=== PATIENT | female | born 1960 | race Caucasian/White ===

== ENCOUNTER 2018-08-21 17:39 | Emergency (ER) | payer OTHER ==
[~2018-08-21] VITALS: Ht 170.2 cm; Wt 99.8 kg
[~2018-08-21 17:39] MED LIST: ACETAMINOPHEN-1 EAC1 PO; ACETAMINOPHEN325 M1 PO; ASPIRIN81 M2 PO; BACTRIM DS TAB1 EACH; BACTRIM DS TAB1 EACH PO; BENADRYL25 MG PO; BENTYL20 MG; BLOOD PRESSURE MED; CIPROFLOXACIN500 M1 PO; CLONAZEPAM 0.50.5 M1 PO; CLONAZEPAM 1 MG1 M1 PO; COMBIVENT INH; COMBIVENT INHALER; DOCUSIL100 MG PO; DOXYCYCLINE 10100 MG PO; FLAGYL500 MG PO; FLEXERIL PO; GEODON PO; HYDROCODON-ACE1 EAC7 PO; HYDROCORTISONE; K-DUR10 MEQ PO; KEFLEX500 MG PO; KLONOPIN PO; LASIX 20 MG TAB20 MG PO; LATUDA40 MG PO; LIPITOR20 MG PO; LISINOPRIL10 MG PO; MEDROLDOSEPACK PO; MOM; MYLANTA; NAPROSYN500 MG PO; NORCO 5-325 TA1 EACH; NORCO 5-325 TA1 EACH PO; OXCARBAZEPINE300 M1; OXCARBAZEPINE300 MG PO; OXTELLAR XR150 MG PO; OXYCONTIN60 MG; PERCOCET 5-3251 EACH PO; PERCOCET PO; PROMS25 WY RECTAL; PROZAC40 MG PO; PYRIDIUM200 MG PO; RISPERDAL 3 MG T3 M1; ROBAXIN 750 MG750 M1 PO; ROBAXIN 750 MG750 MG PO; ROBAXIN500 MG PO; SEROQUEL 50 MG50 MG PO; SKELAXIN 800 M800 M1 PO; TOPROL XL100 MG PO; TRAMADOL 50 MG50 MG PO; TRILEPTAL 300300 MG PO; ULTRAM 50MG TAB50 MG PO; VALIUM5 MG PO; ZOFRAN ODT4 MG DISSOLVE; ZOFRAN ODT4 MG PO
[2018-08-21] MEDS ORDERED: BACLOFEN 10MG T10 MG PO (17:46)
[2018-08-21] MEDS ORDERED: PERCOCET PO (17:46)
[2018-08-21] MEDS ORDERED: VOLTAREN GEL 1100 G2 TOP (17:51)
[2018-08-21 18:22] VITALS: BP 145/90
== END 2018-08-21 18:22 | disposition home or self-care (01) ==
LOC: M.ERS 17:39
DX: M54.41 Lumbago with sciatica, right side (principal); G89.29 Other chronic pain; F17.210 Nicotine dependence, cigarettes, uncomplicated; F31.9 Bipolar disorder, unspecified; E78.5 Hyperlipidemia, unspecified; E66.9 Obesity, unspecified; Z88.8 Allergy status to other drugs, medicaments and biological substances; Z88.0 Allergy status to penicillin; Z88.6 Allergy status to analgesic agent; Z88.2 Allergy status to sulfonamides; Z88.5 Allergy status to narcotic agent; Z98.890 Other specified postprocedural states; Z87.442 Personal history of urinary calculi; Z68.34 Body mass index [BMI] 34.0-34.9, adult